=== PATIENT | female | born 1985 | race Caucasian/White ===

== ENCOUNTER 2016-04-10 10:16 | Emergency (ER) | payer OTHER ==
[~2016-04-10 10:16] MED LIST: BENADRYL25 MG PO; CLINDAMYCIN HY300 MG PO; HYDROXYZIN50 MG/25 M PO; IBU800 MG PO; IBUPROFEN800 M1 PO; MOTRIN800 MG PO; PEPCID20 M1 PO; PREDNISONE10 M2 PO; PROVENTIL HFA6.7 GM INH; SINGULAIR10 M1 PO; SYMBICORT 16010.2 GM INH; TRAMADOL HCL50 M1 PO; ULTRAM50 M1 PO; VICODIN 300 MG-1 TAB PO
--- NOTE | 2016-04-10 10:28 | ED SKIN/ALLERGY COMPLAINT ---
History of Present Illness General Chief Complaint: Dyspnea (COPD, CHF, Other) Stated Complaint: BIBA DIFFICULTY BREATHING Source: patient Exam Limitations: no limitations Vital Signs & Intake/Output Vital Signs & Intake/Output ED Intake and Output 04/11 0000 04/10 1200 Intake Total 1000 Output Total 200 Balance 800 Intake, IV 1000 Output, Urine 200 Allergies Coded Allergies: Penicillins (ANAPHYLAXIS 06/12/15) grass pollen (UNKNOWN 06/12/15) mold (UNKNOWN 06/12/15) pollen extracts (SINUS 06/12/15) Uncoded Allergies: ANIMALS (UNKNOWN 04/02/12) MILDEW (UNKNOWN 04/02/12) Reconcile Medications Albuterol Sulfate (Proventil Hfa) 6.7 GM HFA.AER.AD 2 PUF INH Q4 PRN BREATHING PROBLEMS (Reported) Budesonide/Formoterol Fumarate (Symbicort 160-4.5 Mcg Inhaler) 10.2 GM HFA.AER.AD 2 PUF INH BID BREATHING PROBLEMS (Reported) Clindamycin HCl 150 MG CAPSULE 1 CAP PO TID ANTIBIOTIC, INFECTION (Reported) Diphenhydramine HCl (Benadryl) 25 MG CAPSULE 1 CAP PO TID PRN ITCHING Famotidine (Pepcid) 20 MG TABLET 1 TAB PO DAILY PRN ITCHING Hydroxyzine HCl 50 MG/25 ML SOLUTION 10 ML PO QPM SLEEP (Reported) Ibuprofen 800 MG TABLET 1 TAB PO TID PRN PAIN (Reported) Loratadine 10 MG TABLET 1 TAB PO DAILY ALLERGIES (Reported) Montelukast Sodium (Singulair) 10 MG TABLET 1 TAB PO DAILY ALLERGIES ( Reported) Ondansetron HCl (Zofran) 4 MG TABLET 1 TAB PO Q6-8P nausea Prednisone (Deltasone) 20 MG TABLET 1 TAB PO TID ANAPHYLAXIS Triage Note: PT BIBA FROM WORK FOR AN ALLERGIC REACTION. PT STATES SHE WAS DRIVING TO HER PATIENTS HOUSE WHEN SHE STARTED TO FEEL SHORT OF BREATH. PT STATES SHE HAS MULTIPLE ALLERGIES TO VARIOUS THINGS. PT STATES YESTERDAY HER ALLERGY SHOT DOSE WAS INCREASED. UPON EMS ARRIVAL PT WAS NOTED TO HAVE TONGUE SWELLING AND DIFFICUTLY BREATHING. EMS GAVE PT EPI 0.3MG X2, BENADRYL 50MG IV, SOLUMEDROL 125MG IV, 1.5 LITERS OF NS, AND 3 ALBUTEROL TREATMENTS ENROUTE WHICH IMPROVED SYMPTOMS. UPON ARRIVAL IN ED PT DID NOT HAVE ANY VISIBLE TONGUE OR AIRWAY SWELLING. PT NOT IN RESP DISTRESS. PT HAS A 14G IV TO RAC PLACED BY EMS. Triage Nurses Notes Reviewed? yes Onset: Abrupt Duration: minute(s):, constant, continues in ED Timing: single episode today Severity: moderate, severe : No Patient currently breastfeeds: No HPI: 31-year-old female brought into emergency room by ambulance for anaphylaxis. Patient has severe allergies in general. She was on her way to see a client. Patient reports that she got short of breath with rash and tongue swelling. Patient reports that she got an allergy shot last night. Ambulance gave her 50 mg of Benadryl, 125 of Solu-Medrol, and 2 rounds of 0.3 mg epi IM. Symptoms have improved since then. Patient had reportedly angioedema at the time upon arrival. Patient still complaining of some wheezing. Denies any other associated symptoms. (CESAR MACKAY) Past History Travel History Traveled to [place] past 21 day No Medical History Any Pertinent Medical History? 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 No (CESAR MACKAY) Review of Systems Review of Systems Constitutional: Reports: no symptoms. EENTM: Reports: no symptoms. Respiratory: Reports: no symptoms. Cardiovascular: Reports: no symptoms. GI: Reports: no symptoms. Genitourinary: Reports: no symptoms. Musculoskeletal: Reports: no symptoms. Skin: Reports: no symptoms. Neurological/Psychological: Reports: no symptoms. Hematologic/Endocrine: Reports: no symptoms. Immunologic/Allergic: Reports: see HPI. All Other Systems: Reviewed and Negative (CESAR MACKAY) Physical Exam Physical Exam General Appearance: well developed/nourished, mild distress Head: atraumatic Eyes: Bilateral: normal appearance. Ears, Nose, Throat: normal ENT inspection, hearing grossly normal, no angioedema appreciated Neck: normal inspection Respiratory: no respiratory distress Cardiovascular: regular rate/rhythm Back: normal inspection Extremities: normal inspection, normal range of motion, no edema Neurologic/Psych: awake, alert, oriented x 3, normal mood/affect Skin: intact, rash, some mottling of her skin and upper extremities bilateral, some erythema located around the injection site of her allergy shot, Skin Problem Location: upper extremities Lymphatic: no anterior cervical jessica (CESAR MACKAY) Progress Differential Diagnosis: abscess/cellulitis, allergic reaction, anaphylaxis, angioedema, asthma, contact dermatitis, drug reaction, erythema multiforme Plan of Care: Orders Procedure Date/time Status Regular Diet 04/10 D Active Telemetry/Dairy Associate 04/10 102 Active CBC WITHOUT DIFFERENTIAL 04/10 102 Complete BASIC METABOLIC PANEL 04/10 102 Complete EKG 04/10 102 Active Laboratory Tests 04/10/16 1029: Anion Gap 9, Estimated GFR > 60, BUN/Creatinine Ratio 7.8, Glucose 69, Calcium 8.4, CBC w Diff NO MAN DIFF REQ, RBC 4.40, MCV 86.5, MCH 29.0, RDW 14.1, MPV 8.6 , Gran % 60.2, Lymphocytes % 27.4, Monocytes % 7.3, Eosinophils % 4.5, Basophils % 0.6, Absolute Granulocytes 5.4, Absolute Lymphocytes 2.5, Absolute Monocytes 0.7 H, Absolute Eosinophils 0.4, Absolute Basophils 0, PUBS MCHC 33.5 Initial ED EKG: normal intervals, normal p-waves, normal QRS complex, normal sinus rhythm, rate (87) Comments: 04/10/2016 3:26:58 PM Patient clinically looks well. Nontoxic-appearing. In no apparent distress. Resting comfortably in room. Patient was observed for 4 hours with no recurrent anaphylaxis. No angioedema here. Patient is ready to go home and wants to go home. Case was discussed with Dr. roberts and he agrees with plan of care. (CESAR MACKAY) Departure Departure Disposition: HOME OR SELF CARE Condition: Stable Clinical Impression Primary Impression: Anaphylaxis Referrals: DONALD CONWAY,ABEL Mendoza (PCP/Family) Additional Instructions: Return if any tongue swelling, shortness of breath, or any other concerns worsening symptoms. Please go over all results of today's visit with your primary care doctor. Contact your primary care doctor to let them know you were here in the emergency room. There may be nonspecific findings which may not be related to your visit today here in the emergency room but may require further evaluation and chronic monitoring by your primary care doctor. If you had a laceration today the chance of foreign body always remains. You should follow-up with your primary care doctor for recheck in 3-5 days for a wound check. If you had an x-ray done there is a chance that a fracture could have been missed on initial read and you should follow-up with your primary care doctor for repeat x-rays if symptoms persist. If your blood pressure was elevated here in the emergency room please have rechecked by her primary care doctor within the next 48 hours by your primary care doctor. If you were prescribed a narcotic here in the emergency room or any type of controlled substances you're not allowed to drive while taking this medication or operate any type of heavy machinery. Narcotics can make you feel lightheaded dizziness nausea and can cause constipation. You may need to pick up and delivery driver a stool softener. Thank you for choosing [facility] emergency room. Please return to the emergency room immediately if you have any other concerns worsening of symptoms. Departure Forms: Customer Survey General Discharge Information Prescriptions: Current Visit Scripts Prednisone (Deltasone) 1 TAB PO TID #12 MG Ondansetron HCl (Zofran) 1 TAB PO Q6-8P #15 TAB (CESAR MACKAY) PA/PIG BREEDER Co-Sign Statement Statement: ED Attending supervision documentation- [x] I saw and evaluated the patient. I have also reviewed all the pertinent lab results and diagnostic results. I agree with the findings and the plan of care as documented in the PA's/PIG BREEDER's documentation. [] I have reviewed the ED Record and agree with the PA's/PIG BREEDER's documentation. [] Additions or exceptions (if any) to the PAs/PIG BREEDER's note and plan are summarized below: [] (DIANA CONWAY,CASEY) Critical Care Note Critical Care Note Critical Care Time: 30-74 min (CESAR MACKAY)
[2016-04-10 10:40] LABS: ABSOLUTE BASOPHIL COUNT 0 /CUMM (0.0-0.2); ABSOLUTE EOSINOPHIL COUNT 0.4 /CUMM (0.0-0.7); ABSOLUTE GRANULOCYTE CT 5.4 /CUMM (1.4-6.5); ABSOLUTE LYMPH COUNT 2.5 /CUMM (1.2-3.4); ABSOLUTE MONOCYTE COUNT 0.7 /CUMM (0.10-0.60); BASOPHIL % 0.6 % (0.0-2.0); EOSINOPHIL % 4.5 % (0-5); GRANULOCYTE % 60.2 % (42.2-75.2); HEMATOCRIT 38.1 % (37-47); MEAN CORPUSCULAR HGB CONC 33.5 G/DL (33.0-37.0); MEAN CORPUSCULAR VOLUME 86.5 FL (81.0-99.0); MEAN PLATELET VOLUME 8.6 FL (7.4-10.4); PLATELET COUNT 242 /CUMM (130-400); RBC DISTRIBUTION WIDTH 14.1 % (11.5-14.5)
[2016-04-10] MEDS ORDERED: LORATADINE10 M1 PO (10:43)
[2016-04-10] MEDS ORDERED: IBUPROFEN800 M1 PO (10:44)
[2016-04-10] MEDS ORDERED: CLINDAMYCIN HC150 M1 PO (11:11)
[2016-04-10] MEDS ORDERED: DELTASONE20 MG PO (14:09)
[2016-04-10] MEDS ORDERED: ZOFRAN4 M2 PO (14:10)
[2016-04-10 14:15] VITALS: BP 130/60
== END 2016-04-10 14:15 ==
LOC: ERH 10:16
PROVIDERS: Physician Assistant Medical
DX: D69.0 Allergic purpura (principal); R21 Rash and other nonspecific skin eruption
CPT/HCPCS: 93005; 93010; 96361; 96374

== ENCOUNTER 2017-05-20 13:34 | Emergency (ER) | payer OTHER ==
[~2017-05-20] VITALS: Ht 188 cm; Wt 120.2 kg
[~2017-05-20 13:34] MED LIST changes: +CLINDAMYCIN HC150 M1 PO; +COMBIVENT RESPIM4 GM PO; +DELTASONE20 MG PO; +LIDOCAINE HCL V15 ML PO; +LORATADINE10 M1 PO; +ZITHROMAX250 M2 PO; +ZOFRAN4 M2 PO
[2017-05-20 17:21] LABS: ABSOLUTE BASOPHIL COUNT 0.1 /CUMM (0.0-0.2); ABSOLUTE EOSINOPHIL COUNT 0.7 /CUMM (0.0-0.7); BASOPHIL % 0.4 % (0.0-2.0); EOSINOPHIL % 3.5 % (0-5); HEMATOCRIT 39.3 % (37-47); MEAN CORPUSCULAR HGB 28.7 PG (27.0-31.0); MEAN CORPUSCULAR HGB CONC 33.2 G/DL (33.0-37.0); MEAN CORPUSCULAR VOLUME 86.4 FL (81.0-99.0); PLATELET COUNT 350 /CUMM (130-400); RBC DISTRIBUTION WIDTH 14.9 % (11.5-14.5); RED BLOOD CELL CT 4.55 /CUMM (4.20-5.40); WHITE BLOOD CELL COUNT 19.8 /CUMM (4.8-10.8)
[2017-05-20 17:51] LABS: GRANULOCYTE % 60.6 % (42.2-75.2)
--- NOTE | 2017-05-20 18:17 | RADIOLOGY REPORT ---
EXAMINATION: CHEST 2 VIEWS CLINICAL INFORMATION: Cough, shortness of breath. COMPARISON: 10/28/2005. TECHNIQUE: PA and lateral views of the chest were obtained. FINDINGS: The cardiac silhouette is not enlarged. The mediastinal and hilar contours are unremarkable. There are neither pleural effusions nor pneumothoraces. There are no consolidations. The osseous structures are unremarkable. IMPRESSION: No evidence for acute disease.
[2017-05-20 18:27] VITALS: BP 144/88
[2017-05-20] MEDS ORDERED: PREDNISONE10 M2 PO (18:37)
[2017-05-20] MEDS ORDERED: TRAMADOL HCL50 M1 PO (18:37)
[2017-05-20] MEDS ORDERED: DOXYCYCLINE HY100 M4 PO (18:37)
--- NOTE | 2017-05-20 18:38 | ED INFLUENZA/URI COMPLAINT ---
History of Present Illness General Chief Complaint: General Adult Stated Complaint: LT FLANK FEELS SWOLLEN,SORE THROAT Source: patient Exam Limitations: no limitations Vital Signs & Intake/Output Vital Signs & Intake/Output Vital Signs Date Time Temp Pulse Resp B/P B/P Pulse O2 O2 Flow FiO2 Mean Ox Delivery Rate 05/20 1827 98.2 86 18 144/88 100 Room Air 05/20 1643 Room Air 05/20 1405 98.4 95 20 125/83 98 Room Air Allergies Coded Allergies: Penicillins (ANAPHYLAXIS 06/12/15) grass pollen (UNKNOWN 06/12/15) mold (UNKNOWN 06/12/15) pollen extracts (SINUS 06/12/15) soy (+ TEST 08/23/16) Uncoded Allergies: ANIMALS (UNKNOWN 04/02/12) MILDEW (UNKNOWN 04/02/12) Reconcile Medications Albuterol Sulfate (Proventil Hfa) 6.7 GM HFA.AER.AD 2 PUF INH Q4 PRN BREATHING PROBLEMS (Reported) Azithromycin (Zithromax) 250 MG TABLET 1 DP PO AD pharyngitis 2 the first day followed by 1 for days 2-5 Budesonide/Formoterol Fumarate (Symbicort 160-4.5 Mcg Inhaler) 10.2 GM HFA.AER.AD 2 PUF INH BID BREATHING PROBLEMS (Reported) diphenhydrAMINE HCl (Benadryl) 25 MG CAPSULE 1 CAP PO TID PRN ITCHING Doxycycline Hyclate 100 MG TABLET 1 TAB PO BID BRONCHITIS Famotidine (Pepcid) 20 MG TABLET 1 TAB PO DAILY PRN ITCHING Hydroxyzine HCl 50 MG/25 ML SOLUTION 10 ML PO QPM SLEEP (Reported) Ibuprofen 800 MG TABLET 1 TAB PO TID PRN PAIN (Reported) Ipratropium/Albuterol Sulfate (Combivent Respimat Inhal [place]) 20 MCG-100 MCG/ ACTUATION MIST.INHAL BREATHING PROBLEMS (Reported) Lidocaine HCl (Lidocaine HCl Viscous) 2 % SOLUTION 15 ML PO 4 TIMES/DAY sore throat Loratadine 10 MG TABLET 1 TAB PO DAILY ALLERGIES (Reported) Montelukast Sodium (Singulair) 10 MG TABLET 1 TAB PO DAILY ALLERGIES ( Reported) Ondansetron HCl (Zofran) 4 MG TABLET 1 TAB PO Q6-8P nausea Prednisone 10 MG TABLET 1 DOSE PO ONCE DAILY BRONCHITIS 5 TABS X 3 DAYS THEN 4 TABS X 3 DAYS THEN 3 TABS X3 DAYS THEN 2 TABS X 3 DAYS 1 TAB X3 DAYS Tramadol HCl 50 MG TABLET 1 TAB PO Q6P PRN PAIN Triage Note: 32 YO FEMALE TO TRIAGE C/O SORE THROAT X 6 WEEKS. STATES SHE WAS HERE AND TOLD SHE HAD A VIRUS. STATES THROAT IS BETTER TODAY BUT SHE IS LOOSING HER VOICE, ALSO C/O NEW ONSET OF L SIDED UPPER BACK PAIN. DENIES INURY. Triage Nurses Notes Reviewed? yes Onset: Abrupt Duration: week(s): (4-5), changing over time, continues in ED, getting worse Timing: single episode today Severity: mild, moderate Prior Episodes/Possible Cause: no prior episodes No Modifying Factors: none Associated Symptoms: cough, muscle aches, nasal congestion, nasal drainage, shortness of breath, sore throat, wheezing : No Patient currently breastfeeds: No HPI: 32-year-old female past medical history of asthma presents for reevaluation of sore throat, cough, congestion, shortness breath and wheezing. She states symptoms going on for 4-6 weeks and been intermittently worse. She states that she was treated here about one month ago and is seen several urgent cares for treatment. She states that when she is on steroid she feels better with steroids go away her symptoms come back. She reports a cough productive of yellow sputum and worse at night causing difficulty sleeping. She states that her throat is sore but she is able tolerate food and fluids. She also reports a raspy voice. She states that she's been coughing so much that she has pain in her left ribs. No hemoptysis lower extremity edema recent surgery recent trauma. No fevers. No drooling. No sick contacts. She is a current every day smoker. Past History Travel History Traveled to [place] past 21 day No Medical History Any Pertinent Medical History? 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 No Review of Systems Review of Systems Constitutional: Reports: no symptoms. EENTM: Reports: throat pain. Respiratory: Reports: see HPI, cough, short of breath, sputum production, wheezing. Cardiovascular: Reports: no symptoms. GI: Reports: no symptoms. Genitourinary: Reports: no symptoms. Musculoskeletal: Reports: no symptoms. Skin: Reports: no symptoms. Neurological/Psychological: Reports: no symptoms. Hematologic/Endocrine: Reports: no symptoms. Immunologic/Allergic: Reports: no symptoms. All Other Systems: Reviewed and Negative Physical Exam Physical Exam General Appearance: well developed/nourished, no apparent distress, alert, awake Head: atraumatic, normal appearance Eyes: Bilateral: normal appearance, PERRL, EOMI. Ears, Nose, Throat: moist mucous membrane, hearing grossly normal, Tympanic normal, pharynx normal, nasal congestion, nasal drainage Neck: normal inspection, supple, full range of motion Respiratory: no respiratory distress, rhonchi, wheezing, chest wall tender to palpation over the sternum and left lateral ribs no bruising swelling or abrasions Cardiovascular: regular rate/rhythm, normal peripheral pulses Peripheral Pulses: 2+ radial (R), 2+ radial (L) Gastrointestinal: soft, non-tender Back: normal inspection, normal range of motion, no vertebral tenderness Extremities: normal inspection, normal range of motion, no edema Neurologic/Psych: no motor/sensory deficits, awake, alert, oriented x 3, normal gait Skin: intact, normal color, warm/dry Lymphatic: no anterior cervical jessica Core Measures Sepsis Present: No Sepsis Focused Exam Completed? No Progress Differential Diagnosis: influenza, otitis, pneumonia, pharyngitis, sinusitis, acute bronchitis, asthma exacerbation Plan of Care: Orders Procedure Date/time Status URINE 05/20 1700 Complete URINALYSIS 05/20 1700 Complete TROPONIN LEVEL 05/20 1700 Complete COMPREHENSIVE METABOLIC PANEL 05/20 1700 Complete CBC WITHOUT DIFFERENTIAL 05/20 1700 Complete Laboratory Tests 05/20/17 1714: Anion Gap 11, Estimated GFR > 60, BUN/Creatinine Ratio 7.5, Glucose 82, Calcium 9.1, Total Bilirubin 0.4, AST 18, ALT 9, Alkaline Phosphatase 71, Troponin I < 0.01, Total Protein 6.7, Albumin 4.0, Globulin 2.7, Albumin/Globulin Ratio 1.5, CBC w Diff NO MAN DIFF REQ, RBC 4.55, MCV 86.4, MCH 28.7, MCHC 33.2, RDW 14.9 H , MPV 8.0, Gran % 60.6, Lymphocytes % 30.4, Monocytes % 5.1, Eosinophils % 3.5, Basophils % 0.4, Absolute Granulocytes 12.0 H, Absolute Lymphocytes 6.0 H, Absolute Monocytes 1.0 H, Absolute Eosinophils 0.7, Absolute Basophils 0.1 05/20/171708: Urine Color STRAW, Urine Clarity CLEAR, Urine pH 6.0, Ur Specific Cunningham <= 1.005, Urine Protein NEG, Urine Ketones NEG, Urine Nitrite NEG, Urine Bilirubin NEG, Urine Urobilinogen 0.2, Ur Leukocyte Esterase NEG, Ur Microscopic EXAM NOT REQUIRED, Urine Hemoglobin NEG, Urine Glucose NEG, Urine Test NEGATIVE \ Patient seen and evaluated. She's had symptoms for several weeks now. She is a current every day smoker she reports improvement in her symptoms when on steroids for one the steroid stop her symptoms come back. perc negative. No signs of hypoxia. Chest x-ray negative for pneumonia basic blood work does show an elevated white blood cell, patient has been treated with steroids multiple times. There is no signs of pneumonia or UTI belly soft and nontender no signs of cellulitis. Patient will be treated with doxycycline prednisone taper Cheratussin. Rest voice warm fluids or water gargles throat lozenges 2 sprays. Follow-up with ENT and pulmonology. Discussed return precautions in detail patient agrees the plan. Diagnostic Imaging: Viewed by Me: Radiology Read. Discussed w/RAD: Radiology Read. Radiology Impression: PATIENT: SAMMI WING PRESENT AGE: 32 PATIENT ACCOUNT NO: [id number] : 86 LOCATION: [facility] ORDERING PHYSICIAN: Deion RHOADES SERVICE DATE: 05/20/17 EXAM TYPE: RAD - XRY- CHEST XRAY, TWO VIEWS EXAMINATION: CHEST 2 VIEWS CLINICAL INFORMATION: Cough, shortness of breath. COMPARISON: 10/28/2005. TECHNIQUE: PA and lateral views of the chest were obtained. FINDINGS: The cardiac silhouette is not enlarged. The mediastinal and hilar contours are unremarkable. There are neither pleural effusions nor pneumothoraces. There are no consolidations. The osseous structures are unremarkable. IMPRESSION: No evidence for acute disease. DICTATED BY: Roderick John MD DATE/TIME DICTATED:05/20/171812 MEDICAL RECORD CODER: ARACELY DATE/TIME TRANSCRIBED:05/20/171812 CONFIDENTIAL, DO NOT COPY WITHOUT APPROPRIATE AUTHORIZATION. <Electronically signed in Other Vendor System> Initial ED EKG: none Departure Departure Disposition: HOME OR SELF CARE Condition: Stable Clinical Impression Primary Impression: Acute bronchitis Qualifiers: Bronchitis organism: unspecified organism Qualified Code: J20.9 - Acute bronchitis, unspecified Referrals: Brennon CONWAY,Rich Mendoza (PCP/Family) Jonas Hernandez MD Additional Instructions: Take antibiotics and steroids as directed for the full course. Continue to use Combivent and nebulizer every 4-6 hours as needed. Tylenol ibuprofen and tramadol for pain. Quit smoking. Follow-up with your primary care doctor and provided rf design engineer as soon as possible. Monitor symptoms return with any concerns. Departure Forms: Customer Survey General Discharge Information Prescriptions: Current Visit Scripts Doxycycline Hyclate 1 TAB PO BID #20 TAB Prednisone 1 DOSE PO ONCE DAILY #1 DP 5 TABS X 3 DAYS THEN 4 TABS X 3 DAYS THEN 3 TABS X3 DAYS THEN 2 TABS X 3 DAYS 1 TAB X3 DAYS Tramadol HCl 1 TAB PO Q6P PRN PAIN #10 TAB
== END 2017-05-20 18:51 ==
LOC: ERH 13:34
PROVIDERS: Physician Assistant Medical
DX: J20.9 Acute bronchitis, unspecified (principal)
CPT/HCPCS: 71046; 81003; 81025